=== PATIENT | male | born 1980 | race Caucasian/White ===

== ENCOUNTER → 2016-08-01 | Outpatient (CLI) | payer BC ==
[~2016-08-01] MED LIST: IOHEXOL 240 MG/ML 50ML VIAL. PO ONE
--- NOTE | 2016-08-01 13:05 | RAD ---
EXAM: Abdomen and pelvis CT without contrast. HISTORY: Left lower quadrant pain. TECHNIQUE: Computed tomographic images of the abdomen and pelvis were obtained without contrast. One or more of the following individualized dose reduction techniques were utilized for this examination: 1. Automated exposure control. 2. Adjustment of the mA and/or kV according to patient size. 3. Use of iterative reconstruction technique. COMPARISON: None. FINDINGS: Evaluation of the lower thorax demonstrates right basilar atelectasis. There is no infiltrate or effusion. No hepatic lesion is seen. The gallbladder, pancreas, spleen and adrenal glands and kidneys are unremarkable. The appendix is unremarkable. There is focal fatty stranding adjacent to the distal descending colon, the appearance of which favors epiploic appendagitis or focal fat ischemia/infarction. There is no adjacent colonic wall thickening to suggest colitis or diverticulitis. There are multiple retroperitoneal lymph nodes, none of which are pathologically enlarged. The bladder is unremarkable. There are few calcifications within the prostate. There are few benign bone islands. IMPRESSION: 1. Focal fatty stranding adjacent to the distal descending colon, the appearance of which favors epiploic appendagitis or fat ischemia/infarction. 2. Otherwise, no acute abdominal or pelvic finding.
== END | disposition home or self-care (01) ==
LOC: CT 10:45
PROVIDERS: ATTEND Nurse Practitioner Family
DX: J98.11 Atelectasis (principal); N42.89 Other specified disorders of prostate
CPT/HCPCS: 74176; Q9966

== ENCOUNTER → 2017-02-27 | Outpatient (CLI) | payer BC, MEDICARE ==
--- NOTE | 2017-02-27 15:00 | KCIC ---
EXAM: Left knee, 3 views. HISTORY: Pain. COMPARISON: None. FINDINGS: Frontal, lateral and oblique views of the left knee are obtained. There is no fracture, dislocation or subluxation. There is a tiny ossicle along the medial aspect of the medial femoral condyle. There is no significant joint effusion. IMPRESSION: No acute osseous finding. Electronically signed by: Sheela Bethea MD (02/27/2017 2:56 PM) [id number]
== END | disposition home or self-care (01) ==
LOC: KCIC 14:37
PROVIDERS: ATTEND Family Medicine
DX: M25.562 Pain in left knee (principal)
CPT/HCPCS: 73562

== ENCOUNTER → 2017-07-31 | Outpatient (CLI) | payer BC, MEDICARE | END | disposition home or self-care (01) | LOC: NM 07:58 | DX: I10 Essential (primary) hypertension (principal); E66.9 Obesity, unspecified | CPT/HCPCS: 78452; 93017; 93306; 96374; 96376; A9500 ==